=== PATIENT | female | born 1955 | race Caucasian/White ===

== ENCOUNTER 2017-03-11 10:18 | Emergency (ER) | payer SELFPAY ==
[2017-03-11 10:23] VITALS: O2SAT 98
[2017-03-11] MEDS ORDERED: CEPHALEXIN 500 MG CAP PO ONE (10:44)
--- NOTE | 2017-03-11 10:44 | EDPHY ---
H & P Time Seen by Provider: 03/11/17 10:35 HPI/ROS: CHIEF COMPLAINT: Crush injury middle digit HISTORY OF PRESENT ILLNESS: 61-year-old [id number] female with up-to- date tetanus was placing a camper top her when she accidentally crushed her right middle digit distal phalanx complaining of laceration and injury to the distal phalanx. No paresthesia. No foreign body sensation. occurred shortly prior to arrival PHYSICAL EXAM (Prior to examination, patient consented to physical exam, hands were washed and my usual and customary physical exam procedures followed) 1) GENERAL: Well-developed, well-nourished, alert and oriented. Appears to be in no acute distress. 2) HEAD: Normocephalic 3) HEENT: sclera anicteric 4) LUNGS: Breathing comfortably. 5) SKIN: patient has a 2 cm laceration on the palmar aspect of the right middle digit distal phalanx 6) MUSCULOSKELETAL: [right middle digit distal phalanx tender to palpation, no visible osseous structures . Unable to fully assess flexor function secondary to pain at the DIP 7) NEUROLOGIC: Full sensation two-point discrimination intact Smoking Status: Never smoked Constitutional: Initial Vital Signs Temperature (C) 36.5 C 03/11/17 10:20 Heart Rate 71 03/11/17 10:20 Respiratory Rate 16 03/11/17 10:20 Blood Pressure 127/70 H 03/11/17 10:20 O2 Sat (%) 98 03/11/17 10:20 O2 Delivery Mode Room Air Allergies/Adverse Reactions: No Known Allergies Allergy (Unverified 03/11/17 10:20) Home Medications: Medication Instructions Recorded Cephalexin [Keflex] 500 mg PO QID 5 Days 03/11/17 MDM/Departure - MDM Imaging Results: Imaging Impressions Finger X-Ray 03/11/17 10:41 Impression: 1. No acute osseous abnormality seen right third digit. Images reviewed myself Procedures: Procedure: Laceration repair. I explained the indications, risks and benefits for both laceration repair and anesthetic administration. Verbal consent was obtained from the patient . The laceration on the right middle digit was anesthetized using 0.5% bupivicaine without epinephrine digital nerve block. After anesthetic administered the patient was observed for a period of time and had no apparent adverse effects. The wound was cleaned, prepped, draped in normal sterile fashion and explored to its base. No foreign body seen, no foreign bodies palpated. There were no deep structures involved. No tendon injury was identified. The wound was repaired with 6 simple interrupted 5 O Prolene suture . The wound repair was simple. The procedure was performed by myself. Patient has been informed that scarring will occur, although efforts have been made to minimize this. Medications Given: Discontinued Medications Cephalexin HCl (Keflex) 500 mg PO EDNOW ONE PRN Reason: Protocol Stop: 03/11/17 10:45 Last Admin: 03/11/17 11:18 Dose: 500 mg - Depart Disposition: Home, Routine, Self-Care Clinical Impression: Finger laceration Qualifiers: Encounter type: initial encounter Finger: middle finger Damage to nail status: without damage Foreign body presence: without foreign body Laterality: right Qualified Code(s): S61.212A - Laceration without foreign body of right middle finger without damage to nail, initial encounter Condition: Good Instructions: Laceration (ED), Care For Your Stitches (ED) Additional Instructions: Return to the ER if you develop redness, swelling, discharge, warmth to the wound, red streaks going up your arm, or any other symptoms that concern you. Prescriptions: Cephalexin [Keflex] 500 mg PO QID 5 Days Referrals: Sabra Borges MD [Medical Doctor] - 2-3 days, call for appt.
[2017-03-11 12:22] VITALS: BP 126/76; PULSE 70; RESP 15; TEMP 98.8
== END 2017-03-11 12:22 | disposition home or self-care (01) ==
PROC: 0HQFXZZ Repair Right Hand Skin, External Approach (ICD-10-PCS; principal; 2017-03-11)
DX: S61.212A Laceration without foreign body of right middle finger without damage to nail, initial encounter (principal); W23.1XXA Caught, crushed, jammed, or pinched between stationary objects, initial encounter